=== PATIENT | male | born 2000 | race Caucasian/White ===

== ENCOUNTER 2018-03-11 05:57 | Day surgery (SDC) | payer BC ==
[2018-03-11] MEDS ORDERED: ROCURONIUM 50 MG INJ (07:14)
[2018-03-11] MEDS ORDERED: CEFAZOLIN 1 GM INJ (07:14)
[2018-03-11] MEDS ORDERED: GLYCOPYRROLATE 0.4 MG INJ (07:14)
[2018-03-11] MEDS ORDERED: PROPOFOL 20 ML (07:14)
[2018-03-11] MEDS ORDERED: FENTAnyl 50 MCG/ML VIAL ×3 (07:14→10:36)
[2018-03-11] MEDS ORDERED: MIDAZOLAM 1 MG/ML 2 ML INJ (07:14)
[2018-03-11] MEDS ORDERED: NEOSTIGMINE 3 MG/3 ML SYRINGE (07:14)
[2018-03-11] MEDS ORDERED: DEXAMETHASONE 4 MG/ML 1 ML INJ (07:15)
[2018-03-11] MEDS ORDERED: ONDANSETRON 4 MG INJ (07:15)
[2018-03-11] MEDS ORDERED: OXYCODONE/ACETAMINOPHEN (5/325) TAB PO ×4 (08:00→11:30)
[2018-03-11] MEDS ORDERED: MEPERIDINE 25 MG INJ IV (08:00)
[2018-03-11] MEDS ORDERED: DIPHENHYDRAMINE 50 MG INJ IV (08:00)
[2018-03-11] MEDS ORDERED: ALBUTEROL 0.083% (NEB) 2.5 MG/3 ML AMP HHN (08:00)
[2018-03-11] MEDS ORDERED: FENTAnyl 50 MCG/ML VIAL IV ×3 (08:00)
[2018-03-11] MEDS ORDERED: hydrALAzine 20 MG INJ IV (08:00)
[2018-03-11] MEDS ORDERED: IPRATROPIUM (NEB) 0.5 MG/2.5 ML AMP HHN (08:00)
[2018-03-11] MEDS ORDERED: TRIMETHOBENZAMIDE 100 MG/ML VIAL IM (08:00)
[2018-03-11] MEDS ORDERED: EPHEDrine SULFATE 50 MG/5 ML SYG IV (08:00)
[2018-03-11] MEDS ORDERED: HYDROmorphONE 1 MG/5 ML IV SYRINGE IV ×5 (08:00→14:30)
[2018-03-11] MEDS ORDERED: MIDAZOLAM 1 MG/ML 2 ML INJ IV (08:00)
[2018-03-11] MEDS ORDERED: LABETALOL HCL 20MG INJ IV (08:00)
[2018-03-11] MEDS ORDERED: hydrALAzine 20 MG INJ (08:26)
[2018-03-11] MEDS ORDERED: DEXTROSE 50% 50 ML SYRINGE IV ×2 (08:30)
[2018-03-11] MEDS ORDERED: GLUCOSE GEL 15 GRAM TUBE BUCCAL (08:30)
[2018-03-11] MEDS ORDERED: GLUCOSE GEL 15 GRAM TUBE PO ×2 (08:30)
[2018-03-11] MEDS ORDERED: GLUCAGON 1 MG INJ IM (08:30)
[2018-03-11] MEDS ORDERED: LABETALOL HCL 20MG INJ (08:41)
[2018-03-11] MEDS: POVIDONE IODINE 10% 28.4 GM OINT (09:51)
[2018-03-11] MEDS: POLYMYXIN/BACITRACIN 1L IRRIG (09:51)
[2018-03-11] MEDS: ROPIVACAINE 0.5 % 30 ML VIAL (09:51)
[2018-03-11] MEDS ORDERED: ROPIVACAINE 0.5 % 30 ML VIAL (09:51)
[2018-03-11] MEDS ORDERED: METOCLOPRAMIDE 10 MG INJ (11:13)
[2018-03-11] MEDS ORDERED: SOD CHLORIDE 0.9% 1,000 ML IV (11:28)
[2018-03-11] MEDS: INSULIN ASPART [NOVOLOG] 3 ML PEN SC (11:29)
[2018-03-11] MEDS ORDERED: morphine 2 MG INJ IV (11:30)
[2018-03-11] MEDS ORDERED: ONDANSETRON 4 MG INJ IV (11:30)
[2018-03-11] MEDS: ONDANSETRON 4 MG INJ IV (11:46)
[2018-03-11] MEDS: METOCLOPRAMIDE 10 MG INJ IV (12:57)
== END 2018-03-11 15:00 | disposition home or self-care (01) ==
LOC: SDS 05:57
DX: M65.872 Other synovitis and tenosynovitis, left ankle and foot (principal); M25.372 Other instability, left ankle; S82.832K Other fracture of upper and lower end of left fibula, subsequent encounter for closed fracture with nonunion; X58.XXXD Exposure to other specified factors, subsequent encounter; M24.072 Loose body in left ankle; E11.9 Type 2 diabetes mellitus without complications; Z79.4 Long term (current) use of insulin
CPT/HCPCS: 27696; 82962